=== PATIENT | female | born 1990 | race Asian ===

== ENCOUNTER 2018-07-18 20:54 | Emergency (ER) | payer OTHER ==
[2018-07-18 22:43] LABS: URINE BLOOD (Dip) POC Negative (NEGATIVE); URINE GLUCOSE (Dip) POC Negative (NEGATIVE); URINE KETONES (Dip) POC Negative (NEGATIVE); URINE LEUKOCYTE EST (Dip) POC 1+ (NEGATIVE); URINE NITRITE (Dip) POC Negative (NEGATIVE); URINE TOTAL PROTEIN POC Negative (NEGATIVE)
== END 2018-07-19 02:18 | disposition left against medical advice (07) ==
LOC: FTE 07-19 02:18
DX: Z34.92 Encounter for supervision of normal pregnancy, unspecified, second trimester (principal); Z3A.17 17 weeks gestation of pregnancy
CPT/HCPCS: 76805; 81003; 82962; 99284-25

== ENCOUNTER 2018-08-14 14:40 | Outpatient (CLI) | payer OTHER ==
[2018-08-14 16:02] LABS: ADD UMIC YES; UR ASCORBIC ACID NEGATIVE (NEGATIVE); UR BACTERIA FEW /HPF (NONE SEEN); UR BILIRUBIN (Dip) NEGATIVE (NEGATIVE); UR BLOOD (Dip) NEGATIVE (NEGATIVE); UR CLARITY CLEAR (CLEAR); UR COLOR COLORLESS (YELLOW); UR GLUCOSE (Dip) NEGATIVE (NEGATIVE); UR KETONES (Dip) NEGATIVE (NEGATIVE); UR LEUKOCYTE ESTERASE (Dip) 2+ Leu/ul (NEGATIVE); UR NITRITE (Dip) NEGATIVE (NEGATIVE); UR RBC 1 /HPF (0-5); UR SPECIFIC GRAVITY (Dip) 1.002 (1.003-1.030); UR SQUAMOUS EPITHELIAL CELL FEW /HPF (FEW); UR TOTAL PROTEIN (Dip) NEGATIVE (NEGATIVE); UR UROBILINOGEN (Dip) NEGATIVE (NEGATIVE); UR WBC 1 /HPF (0-5)
[2018-08-14 16:07] LABS: ADD MAN DIFF? NO
[2018-08-14 16:10] LABS: WHITE BLOOD COUNT 6.1 10^3/ul (4.8-10.8)
[2018-08-14 16:10] LABS: BASOPHILS % 0.2 % (0.0-2.0); EOSINOPHILS # 0.1 10^3/ul (0.0-0.5); EOSINOPHILS % 1.8 % (0.0-7.0); HEMATOCRIT 32.4 % (37.0-47.0); HEMOGLOBIN 10.5 g/dl (12.0-16.0); LYMPHOCYTES # 1.8 10^3/ul (0.8-2.9); LYMPHOCYTES % 29.1 % (15.0-51.0); MEAN CORPUSCULAR HEMOGLOBIN 28.9 pg (29.0-33.0); MEAN CORPUSCULAR HGB CONC 32.4 g/dl (32.0-37.0); MEAN CORPUSCULAR VOLUME 89.3 fl (82.0-101.0); MEAN PLATELET VOLUME 10.9 fl (7.4-10.4); MONOCYTE # 0.4 10^3/ul (0.3-0.9); MONOCYTES % 6.1 % (0.0-11.0); NEUTROPHIL # 3.8 10^3/ul (1.6-7.5); NEUTROPHILS % 62.5 % (39.0-77.0); PLATELET COUNT 204 10^3/UL (140-415); RED BLOOD COUNT 3.63 10^6/ul (4.20-5.40); RED CELL DISTRIBUTION WIDTH 11.8 % (11.5-14.5)
[2018-08-14] MEDS: ACETAMINOPHEN 500 MG TAB PO (16:16)
[2018-08-14 16:29] LABS: ALANINE AMINOTRANSFERASE 11 IU/L (13-69); ALBUMIN 3.8 g/dl (3.3-4.9); ALBUMIN/GLOBULIN RATIO 1.15; ALKALINE PHOSPHATASE 57 IU/L (42-121); ANION GAP 7 (5-13); ASPARTATE AMINO TRANSFERASE 14 IU/L (15-46); BILIRUBIN,INDIRECT 0.5 mg/dl (0-1.1); BILIRUBIN,TOTAL 0.5 mg/dl (0.2-1.3); BLOOD UREA NITROGEN 5 mg/dl (7-20); CALCIUM 10.2 mg/dl (8.4-10.2); CARBON DIOXIDE 25 mmol/L (21-31); CHLORIDE 106 mmol/L (97-110); CREATININE 0.42 mg/dl (0.44-1.00); Estimated GFR > 60 mL/min (>60); GLUCOSE 82 mg/dl (70-220); POTASSIUM 3.9 mmol/L (3.5-5.1); SODIUM 138 mmol/L (135-144); TOTAL PROTEIN 7.1 g/dl (6.1-8.1)
== END 2018-08-14 18:21 | disposition home or self-care (01) ==
LOC: OBT 14:40 → L-D 14:44 → OBT 18:21
DX: O26.892 Other specified pregnancy related conditions, second trimester (principal); Z3A.19 19 weeks gestation of pregnancy; R51 Headache
CPT/HCPCS: 80053; 81001; 84560; 85025

== ENCOUNTER 2018-08-14 18:16 | Emergency (ER) | payer OTHER | END 2018-08-14 19:30 | disposition home or self-care (01) | LOC: FTE 18:16 | DX: O99.89 Other specified diseases and conditions complicating pregnancy, childbirth and the puerperium (principal); M25.511 Pain in right shoulder; R07.89 Other chest pain; Z3A.20 20 weeks gestation of pregnancy | CPT/HCPCS: 93005; 99283-25 ==

== ENCOUNTER 2018-10-11 14:45 | Inpatient (IN) | payer OTHER ==
[2018-10-11 15:45] LABS: ADD UMIC YES; UR ASCORBIC ACID NEGATIVE (NEGATIVE); UR BACTERIA FEW /HPF (NONE SEEN); UR BILIRUBIN (Dip) NEGATIVE (NEGATIVE); UR BLOOD (Dip) NEGATIVE (NEGATIVE); UR CLARITY SLIGHTLY CLOUDY (CLEAR); UR COLOR YELLOW (YELLOW); UR GLUCOSE (Dip) NEGATIVE (NEGATIVE); UR KETONES (Dip) NEGATIVE (NEGATIVE); UR LEUKOCYTE ESTERASE (Dip) 2+ Leu/ul (NEGATIVE); UR NITRITE (Dip) NEGATIVE (NEGATIVE); UR RBC 1 /HPF (0-5); UR SPECIFIC GRAVITY (Dip) 1.018 (1.003-1.030); UR SQUAMOUS EPITHELIAL CELL FEW /HPF (FEW); UR TOTAL PROTEIN (Dip) NEGATIVE (NEGATIVE); UR UROBILINOGEN (Dip) NEGATIVE (NEGATIVE); UR WBC 1 /HPF (0-5)
[2018-10-11 15:55] LABS: ADD MAN DIFF? NO
[2018-10-11 15:57] LABS: BASOPHILS % 0.2 % (0.0-2.0); EOSINOPHILS # 0.1 10^3/ul (0.0-0.5); EOSINOPHILS % 1.3 % (0.0-7.0); HEMATOCRIT 30.3 % (37.0-47.0); HEMOGLOBIN 9.8 g/dl (12.0-16.0); LYMPHOCYTES % 30.7 % (15.0-51.0); MEAN CORPUSCULAR HEMOGLOBIN 27.8 pg (29.0-33.0); MEAN CORPUSCULAR HGB CONC 32.3 g/dl (32.0-37.0); MEAN CORPUSCULAR VOLUME 86.1 fl (82.0-101.0); MEAN PLATELET VOLUME 10.5 fl (7.4-10.4); MONOCYTE # 0.4 10^3/ul (0.3-0.9); MONOCYTES % 6.3 % (0.0-11.0); NEUTROPHIL # 3.9 10^3/ul (1.6-7.5); NEUTROPHILS % 61.3 % (39.0-77.0); PLATELET COUNT 189 10^3/UL (140-415); RED BLOOD COUNT 3.52 10^6/ul (4.20-5.40); RED CELL DISTRIBUTION WIDTH 12.1 % (11.5-14.5)
[2018-10-11 15:57] LABS: WHITE BLOOD COUNT 6.4 10^3/ul (4.8-10.8)
[2018-10-11] MEDS: MAGNESIUM SULFATE 4 GM/100 ML 100 ML IV (18:27)
[2018-10-11] MEDS: LACTATED RINGER'S 1,000 ML IV (18:28)
[2018-10-11 18:48] LABS: ALANINE AMINOTRANSFERASE 13 IU/L (13-69); ALBUMIN 3.5 g/dl (3.3-4.9); ALBUMIN/GLOBULIN RATIO 1.02; ALKALINE PHOSPHATASE 135 IU/L (42-121); ANION GAP 8 (5-13); ASPARTATE AMINO TRANSFERASE 15 IU/L (15-46); BILIRUBIN,INDIRECT 0.6 mg/dl (0-1.1); BILIRUBIN,TOTAL 0.6 mg/dl (0.2-1.3); BLOOD UREA NITROGEN 6 mg/dl (7-20); CALCIUM 9.7 mg/dl (8.4-10.2); CARBON DIOXIDE 21 mmol/L (21-31); CHLORIDE 107 mmol/L (97-110); CREATININE 0.44 mg/dl (0.44-1.00); Estimated GFR > 60 mL/min (>60); GLUCOSE 119 mg/dl (70-220); POTASSIUM 3.8 mmol/L (3.5-5.1); SODIUM 136 mmol/L (135-144); TOTAL PROTEIN 6.9 g/dl (6.1-8.1)
[2018-10-11] MEDS: MAGNESIUM SULFATE 20 GM/500 ML 500 ML IV (19:16)
[2018-10-11] MEDS: BETAMET NA PHOS/AC(6 MG/ML) 2 ML INJ SYG IM (19:18)
[2018-10-11 20:54] LABS: INR 0.91; PROTIME 12.4 Sec (11.9-14.9)
[2018-10-11 20:56] LABS: PARTIAL THROMBOPLASTIN TIME 26.3 Sec (23.0-35.0)
[2018-10-12 01:33] LABS: MAGNESIUM 4.6 mg/dl (1.7-2.5)
[2018-10-12] MEDS: LACTATED RINGER'S 1,000 ML IV ×2 (01:58→22:43)
[2018-10-12] MEDS: MAGNESIUM SULFATE 20 GM/500 ML 500 ML IV (05:23)
[2018-10-12 06:34] LABS: MAGNESIUM 4.9 mg/dl (1.7-2.5)
[2018-10-12] MEDS: ACETAMINOPHEN 325 MG TAB PO ×2 (12:04→23:12)
[2018-10-12 12:52] LABS: MAGNESIUM 5.4 mg/dl (1.7-2.5)
[2018-10-12 15:04] LABS: RAPID PLASMA REAGIN NONREACTIVE (NR)
[2018-10-12] MEDS: BETAMET NA PHOS/AC(6 MG/ML) 2 ML INJ SYG IM (20:01)
[2018-10-12] MEDS: PRENATAL VITAMIN PO (23:09)
[2018-10-13] MEDS: LACTATED RINGER'S 1,000 ML IV ×2 (01:12→01:15)
[2018-10-13] MEDS: PRENATAL VITAMIN PO (09:00)
[2018-10-13] MEDS: HYDROCODONE/APAP (5/325) TAB PO (11:57)
== END 2018-10-13 15:20 | disposition home or self-care (01) | DRG 833 ==
LOC: OBT 14:45 → L-D 14:45 → OBT 17:15 → L-D 17:15
DX: O26.872 Cervical shortening, second trimester (principal); M54.5 Low back pain; O26.92 Pregnancy related conditions, unspecified, second trimester; Z3A.27 27 weeks gestation of pregnancy
CPT/HCPCS: 76817; 76818; 80053; 81001; 83735; 85025; 85610; 85730; 86592; 86850; 86900; 86901; 87086

== ENCOUNTER 2018-11-25 12:31 | Outpatient (CLI) | payer OTHER ==
[2018-11-25 13:23] LABS: ADD UMIC YES; UR ASCORBIC ACID NEGATIVE (NEGATIVE); UR BACTERIA FEW /HPF (NONE SEEN); UR BILIRUBIN (Dip) NEGATIVE (NEGATIVE); UR BLOOD (Dip) NEGATIVE (NEGATIVE); UR CLARITY CLEAR (CLEAR); UR COLOR YELLOW (YELLOW); UR GLUCOSE (Dip) NEGATIVE (NEGATIVE); UR KETONES (Dip) NEGATIVE (NEGATIVE); UR LEUKOCYTE ESTERASE (Dip) 3+ Leu/ul (NEGATIVE); UR NITRITE (Dip) NEGATIVE (NEGATIVE); UR RBC 1 /HPF (0-5); UR SPECIFIC GRAVITY (Dip) 1.008 (1.003-1.030); UR SQUAMOUS EPITHELIAL CELL FEW /HPF (FEW); UR TOTAL PROTEIN (Dip) NEGATIVE (NEGATIVE); UR UROBILINOGEN (Dip) NEGATIVE (NEGATIVE); UR WBC 1 /HPF (0-5)
== END 2018-11-25 15:40 | disposition home or self-care (01) ==
LOC: OBT 12:31 → L-D 12:31 → OBT 15:40
DX: O26.893 Other specified pregnancy related conditions, third trimester (principal); R05 Cough; R09.89 Other specified symptoms and signs involving the circulatory and respiratory systems; Z3A.36 36 weeks gestation of pregnancy
CPT/HCPCS: 76818; 81001; 87086

== ENCOUNTER 2018-11-25 15:38 | Emergency (ER) | payer OTHER ==
[2018-11-25 17:37] LABS: ADD MAN DIFF? NO
[2018-11-25 17:41] LABS: WHITE BLOOD COUNT 6.6 10^3/ul (4.8-10.8)
[2018-11-25 17:41] LABS: BASOPHILS % 0.3 % (0.0-2.0); EOSINOPHILS # 0.4 10^3/ul (0.0-0.5); EOSINOPHILS % 6.1 % (0.0-7.0); HEMATOCRIT 33.1 % (37.0-47.0); HEMOGLOBIN 10.5 g/dl (12.0-16.0); LYMPHOCYTES % 30.7 % (15.0-51.0); MEAN CORPUSCULAR HEMOGLOBIN 26.9 pg (29.0-33.0); MEAN CORPUSCULAR HGB CONC 31.7 g/dl (32.0-37.0); MEAN CORPUSCULAR VOLUME 84.7 fl (82.0-101.0); MEAN PLATELET VOLUME 11.5 fl (7.4-10.4); MONOCYTE # 0.5 10^3/ul (0.3-0.9); MONOCYTES % 7.9 % (0.0-11.0); NEUTROPHIL # 3.6 10^3/ul (1.6-7.5); NEUTROPHILS % 54.7 % (39.0-77.0); PLATELET COUNT 200 10^3/UL (140-415); RED BLOOD COUNT 3.91 10^6/ul (4.20-5.40); RED CELL DISTRIBUTION WIDTH 13.1 % (11.5-14.5)
[2018-11-25] MEDS: METHYLPREDNISOLONE 125 MG INJ IV (17:51)
[2018-11-25] MEDS: SOD CHLORIDE 0.9% 500 ML IV (17:52)
[2018-11-25] MEDS: CEFTRIAXONE 1 GM/50 ML (PMX) 50 ML IVPB (17:53)
[2018-11-25] MEDS: IPRATROPIUM (NEB) 0.5 MG/2.5 ML AMP INH (17:54)
[2018-11-25] MEDS: ALBUTEROL 0.083% (NEB) 2.5 MG/3 ML AMP HHN (17:54)
[2018-11-25 17:58] LABS: ANION GAP 8 (5-13); BLOOD UREA NITROGEN 5 mg/dl (7-20); CALCIUM 9.4 mg/dl (8.4-10.2); CARBON DIOXIDE 21 mmol/L (21-31); CHLORIDE 108 mmol/L (97-110); CREATININE 0.47 mg/dl (0.44-1.00); Estimated GFR > 60 mL/min (>60); GLUCOSE 92 mg/dl (70-220); POTASSIUM 4.1 mmol/L (3.5-5.1); SODIUM 137 mmol/L (135-144)
== END 2018-11-25 20:45 | disposition home or self-care (01) ==
LOC: FTE 15:38
DX: O99.513 Diseases of the respiratory system complicating pregnancy, third trimester (principal); J40 Bronchitis, not specified as acute or chronic; Z3A.36 36 weeks gestation of pregnancy
CPT/HCPCS: 36415; 71046; 80048; 85025; 87040-91; 94664; 96365; 96375; 99284-25

== ENCOUNTER 2018-12-14 07:21 | Inpatient (IN) | payer OTHER ==
[2018-12-14] MEDS ORDERED: OXYTOCIN 30 UNITS/LR 500 ML IV (10:00)
[2018-12-14] MEDS ORDERED: MISOPROSTOL 200 MCG TAB PR (10:00)
[2018-12-14] MEDS ORDERED: METHYLERGONOVINE 0.2 MG INJ IM (10:00)
[2018-12-14] MEDS ORDERED: CARBOPROST 250 MCG INJ IM (10:00)
[2018-12-14] MEDS ORDERED: BUTORPHANOL 2 MG INJ IV ×2 (10:00)
[2018-12-14] MEDS ORDERED: LIDOCAINE 1% (MPF) 30 ML INJ INJ (10:00)
[2018-12-14] MEDS: LACTATED RINGER'S 1,000 ML IV ×3 (10:19→23:00)
[2018-12-14] MEDS: CITRIC ACID/NA CITRATE 30 ML CUP PO (10:23)
[2018-12-14 10:29] LABS: ADD MAN DIFF? NO
[2018-12-14 10:32] LABS: BASOPHILS % 0.2 % (0.0-2.0); EOSINOPHILS # 0.4 10^3/ul (0.0-0.5); HEMATOCRIT 31.4 % (37.0-47.0); HEMOGLOBIN 9.9 g/dl (12.0-16.0); LYMPHOCYTES # 1.9 10^3/ul (0.8-2.9); LYMPHOCYTES % 31.7 % (15.0-51.0); MEAN CORPUSCULAR HEMOGLOBIN 25.8 pg (29.0-33.0); MEAN CORPUSCULAR HGB CONC 31.5 g/dl (32.0-37.0); MEAN CORPUSCULAR VOLUME 81.8 fl (82.0-101.0); MEAN PLATELET VOLUME 11.5 fl (7.4-10.4); MONOCYTE # 0.5 10^3/ul (0.3-0.9); MONOCYTES % 8.1 % (0.0-11.0); NEUTROPHIL # 3.2 10^3/ul (1.6-7.5); NEUTROPHILS % 52.5 % (39.0-77.0); PLATELET COUNT 198 10^3/UL (140-415); RED BLOOD COUNT 3.84 10^6/ul (4.20-5.40); RED CELL DISTRIBUTION WIDTH 13.8 % (11.5-14.5)
[2018-12-14 10:54] LABS: INR 0.88; PT RATIO 0.9
[2018-12-14 10:55] LABS: PARTIAL THROMBOPLASTIN TIME 25.8 Sec (23.0-35.0)
[2018-12-14 10:57] LABS: ALANINE AMINOTRANSFERASE 15 IU/L (13-69); ALBUMIN 3.2 g/dl (3.3-4.9); ALBUMIN/GLOBULIN RATIO 0.91; ALKALINE PHOSPHATASE 1087 IU/L (42-121); ANION GAP 9 (5-13); ASPARTATE AMINO TRANSFERASE 14 IU/L (15-46); BILIRUBIN,INDIRECT 0.8 mg/dl (0-1.1); BILIRUBIN,TOTAL 0.8 mg/dl (0.2-1.3); BLOOD UREA NITROGEN 7 mg/dl (7-20); CALCIUM 9.6 mg/dl (8.4-10.2); CARBON DIOXIDE 22 mmol/L (21-31); CHLORIDE 108 mmol/L (97-110); CREATININE 0.45 mg/dl (0.44-1.00); Estimated GFR > 60 mL/min (>60); GLUCOSE 109 mg/dl (70-220); POTASSIUM 3.9 mmol/L (3.5-5.1); SODIUM 139 mmol/L (135-144); TOTAL PROTEIN 6.7 g/dl (6.1-8.1); URIC ACID 5.9 mg/dl (3.1-7.9)
[2018-12-14 11:27] LABS: HEPATITIS B SURFACE ANTIGEN NEGATIVE (NEGATIVE)
[2018-12-14] MEDS ORDERED: MISOPROSTOL 50 MCG CAPSULE VAG (13:00)
[2018-12-14 15:07] LABS: RAPID PLASMA REAGIN NONREACTIVE (NR)
[2018-12-14 19:57] LABS: AMPHETAMINE/METHAMPHETAMINE Negative (NEGATIVE); BARBITURATES Negative (NEGATIVE); BENZODIAZEPINES Negative (NEGATIVE); CANNABINOIDS Negative (NEGATIVE); COCAINE Negative (NEGATIVE); OPIATES Negative (NEGATIVE)
[2018-12-15] MEDS: CALCIUM CARBONATE 500 MG CHEW TAB PO (02:22)
[2018-12-15] MEDS: LACTATED RINGER'S 1,000 ML IV ×4 (07:43→18:50)
[2018-12-15] MEDS: OXYTOCIN 30 UNITS/LR 500 ML IV (07:44)
[2018-12-15] MEDS ORDERED: ONDANSETRON 4 MG INJ IV (14:30)
[2018-12-15] MEDS ORDERED: NALOXONE (0.4 MG/ML) INJ IV (14:30)
[2018-12-15] MEDS ORDERED: DIPHENHYDRAMINE 50 MG INJ IV (14:30)
[2018-12-15] MEDS: FENTAnyl 2MCG/ML-ROPIV 0.2% 100 ML BAG EPI (22:55)
[2018-12-16] MEDS: OXYTOCIN 30 UNITS/LR 500 ML IV ×2 (01:33→01:34)
[2018-12-16] MEDS ORDERED: METHYLERGONOVINE 0.2 MG INJ IM (04:30)
[2018-12-16] MEDS ORDERED: ACETAMINOPHEN 325 MG TAB PO (04:30)
[2018-12-16] MEDS ORDERED: OXYTOCIN 30 UNITS/LR 500 ML IV (04:30)
[2018-12-16] MEDS ORDERED: CARBOPROST 250 MCG INJ IM (04:30)
[2018-12-16] MEDS ORDERED: MISOPROSTOL 200 MCG TAB PR (04:30)
[2018-12-16] MEDS: IBUPROFEN 600 MG TAB PO ×4 (05:38→23:36)
[2018-12-16] MEDS: BENZOCAINE 20% 56 ML SPRAY TOP (05:39)
[2018-12-16] MEDS: WITCH HAZEL/GLYCERIN PAD PR (05:39)
[2018-12-16] MEDS: LACTATED RINGER'S 1,000 ML IV* ×3 (05:47→18:48)
[2018-12-16] MEDS ORDERED: IBUPROFEN 600 MG TAB PO (06:00)
[2018-12-16] MEDS: SENNA/DOCUSATE NA (8.6MG/50MG) TAB PO ×2 (08:39→20:52)
[2018-12-16] MEDS ORDERED: SENNA TAB PO (09:00)
[2018-12-16] MEDS: HYDROCODONE/APAP (5/325) TAB PO (09:58)
[2018-12-17] MEDS: IBUPROFEN 600 MG TAB PO ×3 (05:39→17:32)
[2018-12-17] MEDS: LACTATED RINGER'S 1,000 ML IV* (07:00)
[2018-12-17 08:35] LABS: ADD MAN DIFF? NO
[2018-12-17] MEDS: HYDROCODONE/APAP (5/325) TAB PO (08:40)
[2018-12-17] MEDS: SENNA/DOCUSATE NA (8.6MG/50MG) TAB PO (08:40)
[2018-12-17 08:53] LABS: BASOPHILS % 0.3 % (0.0-2.0); EOSINOPHILS # 0.4 10^3/ul (0.0-0.5); EOSINOPHILS % 4.8 % (0.0-7.0); HEMOGLOBIN 9.1 g/dl (12.0-16.0); LYMPHOCYTES # 2.8 10^3/ul (0.8-2.9); LYMPHOCYTES % 38.4 % (15.0-51.0); MEAN CORPUSCULAR HGB CONC 31.4 g/dl (32.0-37.0); MEAN CORPUSCULAR VOLUME 82.9 fl (82.0-101.0); MONOCYTE # 0.7 10^3/ul (0.3-0.9); NEUTROPHIL # 3.5 10^3/ul (1.6-7.5); NEUTROPHILS % 47.2 % (39.0-77.0); PLATELET COUNT 198 10^3/UL (140-415); RED CELL DISTRIBUTION WIDTH 14.2 % (11.5-14.5)
[2018-12-17 08:53] LABS: WHITE BLOOD COUNT 7.4 10^3/ul (4.8-10.8)
[2018-12-18] MEDS ORDERED: DIPHTH/TET/ACEL PERTUSS (ADULT) 0.5 ML VIAL IM* (09:00)
== END 2018-12-17 18:15 | disposition home or self-care (01) | DRG 807 ==
LOC: OBT 07:21 → PP1 12-16 03:31 → L-D 07:23 → OBT 10:00 → L-D 10:02
PROVIDERS: Obstetrics & Gynecology
PROC: 3E0E7GC Introduction of Other Therapeutic Substance into Products of Conception, Via Natural or Artificial Opening (ICD-10-PCS; 2018-12-15)
PROC: 10H07YZ Insertion of Other Device into Products of Conception, Via Natural or Artificial Opening (ICD-10-PCS; 2018-12-15)
PROC: 10E0XZZ Delivery of Products of Conception, External Approach (ICD-10-PCS; principal; 2018-12-16)
DX: O69.81X0 Labor and delivery complicated by cord around neck, without compression, not applicable or unspecified (principal); O76 Abnormality in fetal heart rate and rhythm complicating labor and delivery; Z3A.39 39 weeks gestation of pregnancy; Z37.0 Single live birth
CPT/HCPCS: 62322; 76815; 76818; 80053; 80307; 84560; 85025; 85610; 85730; 86592; 86850; 86900; 86901; 87340; 99464